=== PATIENT | female | born 2005 | race Caucasian/White ===

== ENCOUNTER 2024-05-07 03:39 | Emergency (ER) | payer BC ==
[~2024-05-07] VITALS: Ht 160 cm; Wt 57.2 kg
[2024-05-07 03:43] VITALS: BP 125/62; PULSE 84; RESP 16; TEMP 97.7; O2SAT 99
[2024-05-07] MEDS ORDERED: AMOX-1230 PO (04:08)
[2024-05-07] MEDS: AMOXIL/CLAVULANATE 875/125 MG 1 TAB PO ONE (04:11)
[2024-05-07 04:13] VITALS: BP 125/62; PULSE 84; RESP 16; TEMP 97.7; O2SAT 99
== END 2024-05-07 04:13 | disposition home or self-care (01) ==
LOC: MED 03:39
DX: J02.9 Acute pharyngitis, unspecified (principal); Z79.899 Other long term (current) drug therapy
CPT/HCPCS: 87081; 99283